=== PATIENT | female | born 1950 ===

== ENCOUNTER 2018-05-02 19:58 | Observation (INO) | payer OTHER ==
--- NOTE | 2018-05-02 20:12 | ED PDOC ---
Arrival/HPI - General Historian: Patient, Family - History of Present Illness Narrative History of Present Illness (Text): 05/02/18 20:41 Patient is a 68 year old female with past medical history of hyperlipidemia, hypertension, s/p pacemaker placement (04/2018) who presents to the emergency department for shortness of breath. Patient's family at the bedside providing some of the history. Patient's daughter states that they were sitting having dinner when the patient started developing acute shortness of breath. They state that she was feeling hot, developed a headache, dizziness and became progressively fatigued. She gave her Tylenol with some improvement of the headache. Daughter states that she recently has a pacemaker placed earlier this month after having a syncopal episode she was found to have pauses. Currently patient is fatigued and was experiencing palpitations prior to arrival. She admits to having a few episodes of diarrhea yesterday. She denies any fevers, chills, nausea/vomiting, chest pain, abdominal pain, recent travel, calf swelling/pain, dysuria. Allergies: NKDA Medications: Rosuvastatin 20mg PO HS Medical History: HLD, Hypertension, Pacemaker placement Surgical History: Hysterectomy Social History: Former smoker, quit 4 years ago; denies alcohol or drug use Time/Duration: Prior to Arrival Symptom Onset: Sudden Symptom Course: Unchanged <Cadence Bennett - Last Filed: 05/03/18 00:18> <Armando Chaidez - Last Filed: 05/03/18 03:06> - General Chief Complaint: Shortness Of Breath Time Seen by Provider: 05/02/18 20:10 Past Medical History - Provider Review Nursing Documentation Reviewed: Yes - Cardiac Hx Cardiac Disorders: Yes <Cadence Bennett - Last Filed: 05/03/18 00:18> Family/Social History - Physician Review Nursing Documentation Reviewed: Yes Family/Social History: CAD/TN Smoking Status: Former Smoker Hx Alcohol Use: No Hx Substance Use: No <Cadence Bennett - Last Filed: 05/03/18 00:18> Allergies/Home Meds <Cadence Bennett - Last Filed: 05/03/18 00:18> <Armando Chaidez - Last Filed: 05/03/18 03:06> Allergies/Adverse Reactions: Allergies No Known Allergies Allergy (Verified 05/02/18 20:09) Home Medications: Home Meds Medication Instructions Recorded Confirmed Rosuvastatin Calcium 25 mg PO DAILY 05/02/18 05/02/18 Review of Systems - Physician Review All systems were reviewed & negative as marked: Yes - Review of Systems Constitutional: Fatigue. absent: Fevers Eyes: absent: Vision Changes ENT: absent: Hearing Changes Respiratory: SOB. absent: Cough, Wheezing Cardiovascular: Palpitations. absent: Chest Pain Gastrointestinal: Diarrhea. absent: Abdominal Pain, Constipation, Nausea, Vomiting Genitourinary Female: absent: Dysuria Musculoskeletal: absent: Back Pain Skin: absent: Rash Neurological: Headache. absent: Dizziness <Cadence Bennett - Last Filed: 05/03/18 00:18> Physical Exam Vital Signs Reviewed: Yes Temperature: Afebrile Blood Pressure: Hypertensive Pulse: Regular Respiratory Rate: Normal Appearance: Positive for: Non-Toxic Pain Distress: Mild Mental Status: Positive for: Alert and Oriented X 3 - Systems Exam Head: Present: Atraumatic, Normocephalic Extroacular Muscles: Present: EOMI Mouth: Present: Moist Mucous Membranes Neck: Present: Normal Range of Motion Respiratory/Chest: Present: Clear to Auscultation. No: Respiratory Distress, Accessory Muscle Use, Wheezes, Rales, Rhonchi Cardiovascular: Present: Regular Rate and Rhythm, Normal S1, S2, Other (+pacemaker) Abdomen: Present: Normal Bowel Sounds. No: Tenderness, Distention Upper Extremity: Present: Normal Inspection Lower Extremity: Present: Normal Inspection, NORMAL PULSES. No: CALF TENDERNESS, Greyson's Sign Skin: Present: Warm, Dry Psychiatric: Present: Alert, Oriented x 3 <Cadence Bennett - Last Filed: 05/03/18 00:18> Vital Signs Temp Pulse Pulse Resp BP Pulse Ox 05/03/18 02:00 76 05/03/18 01:55 76 20 05/03/18 00:40 98.1 F 83 18 112/69 100 05/03/18 00:01 98.1 F 73 18 133/81 99 05/02/18 20:09 97.7 F 94 H 12 139/104 H 95 05/02/18 19:59 18 97 <Armando Chaidez - Last Filed: 05/03/18 03:06> Medical Decision Making ED Course and Treatment: 05/02/18 20:34 Patient is a 68 year old female with past medical history of hyperlipidemia, s/p pacemaker placement (04/2018) who presents to the emergency department for dyspnea, generalized weakness and headache. On exam, patient is hypoxic, lethargic. Plan - CT angio PE protocol - CBC, CMP, D dimer, troponin, Pro-bnp - Arterial blood gas - Supplemental Oxygen 05/02/18 23:02 CT chest report and labs reviewed . We will admit for hypoxia, dyspnea, and leukocytosis. Call placed to Dr Pabon, awaiting call back. 05/03/18 00:18 Discussed the case with Dr Pabon. Will admit the patient to telemetry under her service. - RAD Interpretation Narrative RAD Interpretations (Text): 05/02/18 22:58 CT chest: 1. Pulmonary embolism is not identified. Study is limited secondary to respiratory motion. 2. No infiltrates, pleural effusions, or pneumothoraces. 3. One solitary distal right paratracheal space lymph node measuring 11 mm in diameter short axis. 4. Thoracic aorta of normal course and caliber. Molecular Biology Professor: Radiologist - EKG Interpretation EKG Interpretation (Text): 05/02/18 20:36 EK bpm, NSR, right bundle branch block Interpreted by ED Physician: Yes Type: 12 lead EKG <Cadence Bennett - Last Filed: 05/03/18 00:18> ED Course and Treatment: Seen and examined with resident. 68 y/o F p/w dyspnea. On exam, tachycardic, clear breath sounds. - Lab Interpretations Lab Results: 05/02/18 20:21 05/02/18 20:21 Lab Results 05/02/18 23:11: pCO2 36, pO2 75.0 L, HCO3 22.3, ABG pH 7.40, ABG Total CO2 23.4, ABG O2 Saturation 96.6, ABG O2 Content 16.6, ABG Base Excess -2.1 L, ABG Hemoglobin 12.4, ABG Carboxyhemoglobin 1.1, POC ABG HHb (Measured) 3.3, ABG Methemoglobin 0.9, ABG O2 Capacity 17.2, Hgb O2 Saturation 94.7 L, FiO2 21.0 05/02/18 20:21: D-Dimer, Quantitative 588 H 05/02/18 20:21: Sodium 139, Potassium 3.9, Chloride 107, Carbon Dioxide 23, Anion Gap 13, BUN 11, Creatinine 0.6 L, Est GFR ( Amer) > 60, Est GFR (Non-Af Amer) > 60, Random Glucose 161 H, Calcium 9.2, Total Bilirubin 0.2, AST 27, ALT 37, Alkaline Phosphatase 156 H, Total Creatine Kinase 65, Troponin I < 0.01, NT-Pro-B Natriuret Pep 44.8, Total Protein 7.0, Albumin 3.9, Globulin 3.1, Albumin/Globulin Ratio 1.2 05/02/18 20:21: WBC 15.1 H, RBC 4.78, Hgb 13.5, Hct 40.8, MCV 85.4, MCH 28.2, MCHC 33.1, RDW 14.9 H, Plt Count 304, MPV 10.7, Gran % 69.9 H, Lymph % (Auto) 16.4 L, [place] % (Auto) 6.6 H, Eos % (Auto) 7.0 H, Baso % (Auto) 0.1, Gran # 10.57 H, Lymph # (Auto) 2.5, [place] # (Auto) 1.0 H, Eos # (Auto) 1.1 H, Baso # (Auto) 0.02 - RAD Interpretation Radiology Orders: 05/02/18 22:27 ANGIO CHEST PE PROTOCOL [CT] Stat <Armando Chaidez - Last Filed: 05/03/18 03:06> Disposition/Present on Arrival - Present on Arrival Any Indicators Present on Arrival: No History of DVT/PE: No History of Uncontrolled Diabetes: No Urinary Catheter: No History of Decub. Ulcer: No - Disposition Have Diagnosis and Disposition been Completed?: Yes Disposition Time: 00:18 Patient Plan: Admission <Cadence Bennett - Last Filed: 05/03/18 00:18> <Armando Chaidez - Last Filed: 05/03/18 03:06> - Disposition Diagnosis: Hypoxia, Shortness of breath Disposition: HOSPITALIZED Patient Problems: Current Active Problems Problem Status Onset Hypoxia Acute Shortness of breath Acute Condition: FAIR
[2018-05-02 21:17] LABS: ALB/GLOB RATIO 1.2 (1.1-1.8); ALBUMIN 3.9 g/dL (3.0-4.8); ALT/SGPT 37 U/L (7-56); AST/SGOT 27 U/L (14-36); BLOOD UREA NITROGEN 11 mg/dL (7-21); CALCIUM 9.2 mg/dL (8.4-10.5); GFR NON-AFRICAN AMERICAN > 60
[2018-05-02 21:27] LABS: B-TYPE NATRIURETIC PEPTIDE 44.8 pg/mL (0-450); TROPONIN I < 0.01 ng/mL
[2018-05-02] MEDS ORDERED: Iodixanol 320 MG/ML 100 ML BOTTLE IV ONE (21:33)
[2018-05-02 21:37] LABS: HEMOGLOBIN 13.5 g/dL (12.0-16.0); RBC 4.78 10^6/uL (3.5-6.1); WHITE BLOOD COUNT 15.1 10^3/uL (4.5-11.0)
[2018-05-02 21:38] LABS: BASO # 0.02 K/mm3 (0.0-2.0); BASO % 0.1 % (0.0-3.0); EOS # 1.1 (0.0-0.7); GRAN # 10.57 (1.4-6.5); GRAN % 69.9 % (50.0-68.0); LYMPH # 2.5 (1.2-3.4); LYMPH % 16.4 % (22.0-35.0); MEAN CELL VOLUME 85.4 fl (80.0-105.0); MEAN CORPUSCULAR HEMOGLOBIN 28.2 pg (25.0-35.0); MEAN CORPUSCULAR HGB CONC 33.1 g/dl (31.0-37.0); MEAN PLATELET VOLUME 10.7 fl (7.0-11.0); MONO % 6.6 % (1.0-6.0); RED CELL DISTRIBUTION WIDTH 14.9 % (11.5-14.5)
[2018-05-02 23:13] LABS: ARTERIAL BLOOD GAS HCO3 22.3 mmol/L (21-28); ARTERIAL BLOOD GAS HEMOGLOBIN 12.4 g/dL (11.7-17.4); ARTERIAL BLOOD GAS O2 CAPACITY 17.2 mL/dl (16-24); ARTERIAL BLOOD GAS O2 CONTENT 16.6 ML/dl (15-23); ARTERIAL BLOOD GAS O2 SAT 96.6 % (95-98); ARTERIAL BLOOD GAS PCO2 36 mm/Hg (35-45); ARTERIAL BLOOD GAS TCO2 23.4 mmol.L (22-28)
[2018-05-03 00:59] LABS: URINE BILIRUBIN NEGATIVE (NEGATIVE); URINE BLOOD NEGATIVE (NEGATIVE); URINE GLUCOSE (UA) NEGATIVE (NEGATIVE); URINE LEUKOCYTE ESTERASE SMALL Leu/uL (NEGATIVE); URINE PROTEIN NEGATIVE mg/dL (<30 mg/dL); URINE UROBILINOGEN 0.2 E.U./dL (<1 E.U./dL)
[2018-05-03 01:14] LABS: URINE APPEARANCE SL CLOUDY (CLEAR); URINE COLOR YELLOW (YELLOW)
[2018-05-03 01:15] LABS: URINE BACTERIA FEW (NEG); URINE EPITHELIAL CELLS 0 - 2 /hpf (0-5); URINE RBC 0 - 2 /hpf (0-2)
[2018-05-03 02:33] VITALS: BMI 30.9
[2018-05-03] MEDS ORDERED: Albuterol-Ipratrop 3 mg / 0.5 (3 ml) UD IH PRN (08:22)
[2018-05-03] MEDS ORDERED: Levalbuterol 0.63 MG/3 ML Inhal Soln UD IH PRN (09:57)
[2018-05-03] MEDS ORDERED: ROSUVASTATIN PO SCH (10:00)
[2018-05-03] MEDS: Enoxaparin 40 mg Syringe SC SCH (10:31)
--- NOTE | 2018-05-03 12:08 | CT ---
Date of service: 05/02/2018 PROCEDURE: CT Chest with contrast (Pulmonary Angiogram) HISTORY: dyspnea, r/o PE COMPARISON: None available. TECHNIQUE: Axial computed tomography images were obtained of the chest in the pulmonary arterial phase of enhancement. Coronal and sagittal reformatted images were created and reviewed. Intravenous contrast dose: Radiation dose: Total exam DLP = 533.47 mGy-cm. This CT exam was performed using one or more of the following dose reduction techniques: Automated exposure control, adjustment of the mA and/or kV according to patient size, and/or use of iterative reconstruction technique. FINDINGS: PULMONARY ARTERIES: Visualized pulmonary trunk, right and left main, lobar and proximal subsegmental branches of the pulmonary arteries are opacified with no definitive filling defects seen to suggest acute central pulmonary embolus. Note that the distal branches are poorly seen due to large body habitus, suboptimal opacification and cardiac motion artifact. Pulmonary trunk measures approximately 2.8 cm.. AORTA: No acute findings. No thoracic aortic aneurysm. Ascending thoracic aorta measures approximately 2.9 cm and descending thoracic aorta measures approximately 2.0 cm. No aortic atherosclerotic calcification or mural plaque present. LUNGS: Mild passive/dependent type atelectasis both posterior lower lung jones.. There is also some linear scarring change in the left lower lung field extending to the lateral pleural surface. No focal consolidation. No parenchymal masses or nodules. PLEURAL SPACES: Unremarkable. No effusion or pneumothorax. HEART: Heart size within range of normal.. No significant pericardial effusion. In situ bipolar cardiac pacemaker. LYMPH NODES: Few small mediastinal lymph nodes are present the largest right parasagittal precarinal lymph node measuring approximately 12 mm. There is a left-sided prevascular space lymph node measuring approximately 1 cm. Trachea midline and patent with no large central endoluminal lesions.. There is a small hiatal hernia. BONES, CHEST WALL: Unremarkable. No fracture or destructive lesion OTHER FINDINGS: Unremarkable. IMPRESSION: Limited study as described. No evidence of acute central pulmonary embolus. Few small nonspecific mediastinal and hilar lymph nodes.
--- NOTE | 2018-05-03 17:42 | CARD ---
APPROVED REPORT Date of service: 05/02/2018 EKG Measurement Heart [id number] <Conclusion> Normal sinus rhythm Right bundle branch block Left posterior fascicular block Bifascicular block Possible Inferior infarct, age undetermined Abnormal ECG
--- NOTE | 2018-05-03 18:25 | CON ---
DATE: 05/03/2018 CARDIOLOGY EVALUATION REASON FOR CONSULTATION: Admitted with palpitation, history of recently pacemaker placed. BRIEF CLINICAL HISTORY: This is a 68-year-old -[place] female with a past medical history significant for hypertension, hyperlipidemia, sick sinus syndrome, multiple syncope x3, found to be multiple pause and heart rate slow, status post permanent pacemaker in 04/2018 at [facility]. Yesterday, the patient was visiting her daughter in [place], felt some palpitation, headache, so came to the emergency room. Denies any chest pain. Denies any palpitation, though complains of shortness of breath. PAST MEDICAL HISTORY: Significant for hypertension, hyperlipidemia, sick sinus syndrome, recently placed pacemaker in 04/2018 because of three episodes of syncope and multiple pauses and bradycardia. CURRENT MEDICATIONS: The patient is taking cholesterol medication rosuvastatin, dose not sure, possibly 5 mg daily. PAST SURGICAL HISTORY: Significant for hysterectomy 25 years ago. SOCIAL HISTORY: Former smoker. Quit 4 years ago. Used to smoke a pack, started at the age of 18. Denies any history of alcohol abuse. FAMILY HISTORY: Noncontributory. REVIEW OF SYSTEMS: As per HPI. PHYSICAL EXAMINATION: As follows; VITAL SIGNS: Height of the patient is 5 feet 4 inches, weight of the patient is 180 pounds, body mass index 32 kg/m2. Rest of the vitals; temperature afebrile, heart rate 75, blood pressure 115/65. HEENT: PERRLA. Extraocular muscles intact. NECK: Supple. No carotid bruit or thyromegaly. CHEST: Clear to auscultation. HEART: S1, S2 regular. ABDOMEN: Soft. EXTREMITIES: Clubbing and cyanosis negative. EKG shows normal sinus, heart rate of 100, right bundle-branch block, left anterior hemiblock. LABORATORY DATA: Rest of the blood workup as follows; WBC 15.1, hemoglobin 13.5, hematocrit 40.8, platelet count 304. Chemistry shows sodium 139, potassium 3.9, chloride of 107, carbon dioxide 23, anion gap of 13, BUN 11, creatinine 0.6. Troponin 0.01, negative. Telemetry shows normal sinus. IMPRESSION: A 68-year old female with a past medical history significant for hyperlipidemia, hypertension borderline, history of recent three episodes of syncope, sick sinus syndrome, multiple pauses, status post pacemaker in [facility] on 04/2018, was visiting to the daughter, found the palpitation and headache, so brought here. Denies any chest pain. So far, troponin remains negative. RECOMMENDATIONS: Get echo to assess LV function. Lipid profile, TSH, hemoglobin A1c. Continue DVT prophylaxis. Monitor the blood pressure. Start low dose of beta-marce as tolerated. Further recommendations as per hospital course. We will follow with you. We will get chest x-ray if it is not done, portable because did not show any record of the chest x-ray being done. See the lead position of pacemaker. We will follow with you. Thank you Dr. Gavin for providing us the opportunity in taking care of the patient, Naomi Vee. Alberto Simmons MD
[2018-05-03] MEDS ORDERED: ROSUVASTATIN 5 MG PO SCH (19:44)
--- NOTE | 2018-05-03 21:57 | CON ---
DATE OF CONSULTATION: 05/03/2018 REFERRING PHYSICIAN: Jessica Gavin MD REASON FOR CONSULTATION: Cough, shortness of breath, may have sleep apnea syndrome, cardiac arrhythmia, history of pacemaker. HISTORY OF PRESENT ILLNESS: This is a 68-year-old female with past medical history significant for hypertension, hyperlipidemia, history of cardiac arrhythmia requiring pacemaker. She is a resident of [place], visiting her daughter here in [place]. While sitting up, felt some headache, shortness of breath and brought into emergency room, was admitted for further workup. Presently lying in the bed, seen by Cardiology, admits to loud snoring, daytime sleepy and tired. No chest pain. No nausea, no vomiting, no diarrhea, leg pain or leg swelling. PAST MEDICAL HISTORY: As per history of present illness. FAMILY HISTORY: No significant cardiopulmonary disease reported. SOCIAL HISTORY: Stopped smoking few years ago. Denied any alcohol use. MEDICATIONS: She is on Ecotrin 81 mg daily, metoprolol tartrate 25 mg twice a day, Lovenox 40 mg daily, Xopenex inhaled every 6 hours p.r.n. ALLERGIES: NONE KNOWN. REVIEW OF SYSTEMS: On and off headache, no rhinitis. Mild cough and shortness of breath. Admits to loud snoring. Short of breath with exertion. No chest pain. No nausea, vomiting, diarrhea, leg pain or leg swelling. PHYSICAL EXAMINATION: GENERAL: No acute distress. VITAL SIGNS: Temperature is 98, heart rate is 64, respiratory rate is 18, blood pressure 127/88, pulse ox 100% on nasal cannula. HEENT: Moist mucous membranes. Crowded airway. Mallampati score is 4. NECK: Supple. No JVD. LUNGS: Fair airflow with few rhonchi. HEART: S1 and S2. ABDOMEN: Soft, nontender, no organomegaly. EXTREMITIES: No edema. NEUROLOGIC: Awake, alert, and follows simple commands. LABORATORY DATA: Hemoglobin 13.5, hematocrit 40.5, WBC 15.1, platelet count is 304,000. D-dimer was 588. ABG showed pH 7.40, pCO2 of 36, O2 of 75 that is on nasal cannula. Sodium 139, potassium 3.9, chloride 107, bicarbonate 23, BUN 11, creatinine 0.6, calcium 9.2, total bili 0.2, AST 27, ALT 37, alk phos is 156. Troponin less than 0.01. Albumin is 3.9. Urinalysis unremarkable. CAT scan of the chest done in ER, which shows limited study. No evidence of acute incident of pulmonary embolism. Few small nonspecific mediastinal and hilar nodes. IMPRESSION AND PLAN: May have chronic obstructive lung disease, hilar and mediastinal node, may have sleep apnea syndrome, cardiac arrhythmia requiring pacemaker, hyperlipidemia, hypertension. Case discussed with the patient's daughter at bedside. All their questions answered. Seen by certification officer. From a pulmonary point of view, definitely needs a sleep study upon discharge as outpatient. Should also get PFTs. She needs followup CAT scan and low-dose x-rays for cancer screening. Recently stopped smoking. Has some nonspecific mediastinal and hilar adenopathy. Family and the patient aware of followup. May add gastric prophylaxis. Continue DVT prophylaxis. Thank you and we will follow with you. Alberto Avila MD
--- NOTE | 2018-05-03 23:24 | HP ---
DATE OF EXAM: 05/03/2018 The patient is 68 years old female. The patient was seen and examined at the bedside on 05/03/2018 CHIEF COMPLAINT: Shortness of breath and dyspnea. HISTORY OF PRESENT ILLNESS: Ms. Nanda Salgado is a 68-year-old Citizen Of [place] female with past medical history of hypercholesterolemia, hypertension, pacemaker, came to the emergency department with shortness of breath and dyspnea. The patient's family at the bedside provided information. The patient daughter states that, they were sitting having dinner when the patient started developing acute shortness of breath. They states that she was feeling hot, developed headache, dizziness, became progressively fatigued. They gave her Tylenol with some improvement of the headache. The daughter states that she recently had the pacemaker placed earlier this month. After having syncopal episode, she was found to have pauses. Currently, the patient is fatigued, experiencing palpitation prior to arrival. Having episode of diarrhea yesterday. No fever. No chills. No recent travel. No cough, tenderness, or dysuria. I saw patient in her room; at that moment, she was feeling comfortable. PAST MEDICAL HISTORY: Hypercholesterolemia, hypertension, pacemaker placement, history of syncopal attack. ALLERGIES: THE PATIENT IS NOT ALLERGIC WITH ANY MEDICATIONS. HOME MEDICATION: Crestor. HABITS: Former smoker, quit 4 years ago. No alcohol. No substance abuse. REVIEW OF SYSTEMS: The patient was seen and examined at the bedside in the telemetry, looking comfortable, feeling little bit fatigued, but no fever. No vision changes. No hearing changes. Having shortness of breath, especially on exertion, but no coughing or wheezing. Having palpitation, but no chest pain at this moment. Having history of diarrhea, but no abdominal pain, constipation, nausea or vomiting at this moment. No dysuria. No back pain. No rashes. No dizziness. PHYSICAL EXAMINATION: VITAL SIGNS: Temperature 98.1, pulse 76, respiratory rate 20, blood pressure 133/81, pulse oximetry 99%. HEENT: Head, normocephalic and atraumatic. Eyes PERRLA. Extraocular movements intact. Conjunctivae clear. Nose patent. Mucous membranes moist. NECK: Supple. No carotid bruit. No JVD or thyromegaly. CHEST: Bilaterally symmetrical. HEART: S1, S2 positive. LUNGS: Clear to auscultation. ABDOMEN: Soft. Bowel sounds present. No organomegaly. EXTREMITIES: No edema, no cyanosis. NEUROLOGIC: The patient awake and alert, moving all four extremities. No focal deficit. LABORATORY DATA: White blood cells 15.1, hemoglobin 13.5, hematocrit 40.8, and platelets 304. Sodium 139, potassium 3.9, BUN 11, creatinine 0.6, glucose 161. ASSESSMENT AND PLAN: Ms. Nanda Salgado is a 68-year-old lady with a leukocytosis, and hyperglycemia, came with hypoxia, shortness of breath, history of hypercholesterolemia, hypertension, pacemaker placement. After syncopal attack, according to family has history of pauses. Getting cholesterol medication at home. We admitted the patient in the telemetry, did CAT scan of the chest, no evidence of acute central pulmonary embolism. Few small nonspecific mediastinal and hilar lymph nodes present. Echocardiography done, results are pending. Would consult with Dr. Reyes, manager of security and Dr. Avila, licensing director. Started the patient on aspirin, Crestor, metoprolol by Dr. Simmons. Lovenox started, Xopenex started. We will monitor the patient in telemetry. Repeat the labs. Gastrointestinal and deep venous thrombosis prophylaxis. We will follow up. Jessica Gavin MD
[2018-05-04 06:07] VITALS: O2SAT 98
--- NOTE | 2018-05-04 07:40 | CP.PCM.PN ---
Subjective - Date & Time of Evaluation Date of Evaluation: 05/04/18 Time of Evaluation: 06:20 - Subjective Subjective: Awake,ambulating to bathroom,denies shortness of breath Reason for consultation and follow up: Cardiac evaluation of shortness of breath and palpitation ,history of PPM for sick sinus syndrome, hypertension,hyperlipidemia Seen and examined by me and Dr. Simmons Objective - Vital Signs/Intake and Output Vital Signs (last 24 hours): Temp Pulse Resp BP Pulse Ox 97.7 F 74 20 130/86 98 05/04/18 06:00 05/04/18 06:00 05/04/18 06:00 05/04/18 06:00 05/04/18 06:00 Intake and Output: 05/04/18 05/04/18 06:59 18:59 Intake Total 360 Balance 360 - Medications Medications: Current Medications Aspirin (Ecotrin) 81 mg PO DAILY [facility] Last Admin: 05/03/18 10:30 Dose: 81 mg Enoxaparin Sodium (Lovenox) 40 mg SC DAILY [facility]; Protocol Last Admin: 05/03/18 10:31 Dose: 40 mg Famotidine (Pepcid) 40 mg PO [facility] Last Admin: 05/03/18 21:30 Dose: 40 mg Home Med (Home Med) 0 unit PO DAILY [facility] Levalbuterol HCl (Xopenex) 0.63 mg IH [id number] PRN PRN Reason: Shortness of Breath Metoprolol Tartrate (Lopressor) 25 mg PO BID [facility] Last Admin: 05/03/18 17:36 Dose: 25 mg - Labs Labs: 05/02/18 20:21 05/02/18 20:21 - Constitutional Appears: Non-toxic, No Acute Distress - Head Exam Head Exam: NORMAL INSPECTION, NORMOCEPHALIC - Eye Exam Eye Exam: Normal appearance Pupil Exam: NORMAL ACCOMODATION - ENT Exam ENT Exam: Mucous Membranes Moist, Normal Exam - Neck Exam Neck Exam: Full ROM - Respiratory Exam Respiratory Exam: Decreased Breath Sounds, NORMAL BREATHING PATTERN - Cardiovascular Exam Cardiovascular Exam: Bradycardia, +S1, +S2 Additional comments: No JVD PPM - GI/Abdominal Exam GI & Abdominal Exam: Soft, Normal Bowel Sounds - Extremities Exam Extremities Exam: Full ROM, Normal Capillary Refill - Neurological Exam Neurological Exam: Alert, Awake, Oriented x3 - Psychiatric Exam Psychiatric exam: Normal Affect, Normal Mood - Skin Skin Exam: Dry, Normal Color, Warm Assessment and Plan - Assessment and Plan (Free Text) Assessment: A 68 year old female who came in to the ER due to shortness of breath and palpitations. History of hypertension, hyperlipidemia, sick sinus syndrome requiring PPM (04/2018) in [place], former smoker quit 4 years ago. She was visiting her daughter in [place] when symptoms happened. Troponin normal. Echo done to evaluate LV function. CT of chest no evidence of PE. EKG, normal sinus rhythm. Plan: No distress, ambulating to bathroom Denies chest pain or shortness of breath Echo was done will follow up results Heart rate controlled/PPM Blood pressure controlled On ASA 81 mg daily, Lovenox 40 mg daily,Lopressor 25 mg BID Continue current medications Continue current treatment Chest X ray to check PPM Lead placement Chart reviewed Will follow up Plan and treatment discussed with Dr. Simmons
[2018-05-04 07:49] LABS: ALB/GLOB RATIO 1.1 (1.1-1.8); ALBUMIN 3.8 g/dL (3.0-4.8); ALT/SGPT 32 U/L (7-56); AST/SGOT 26 U/L (14-36); BLOOD UREA NITROGEN 12 mg/dL (7-21); CALCIUM 8.9 mg/dL (8.4-10.5); GFR NON-AFRICAN AMERICAN > 60; HDL CHOLESTEROL 37 mg/dL (29-60)
[2018-05-04 08:00] LABS: LDL CHOLESTEROL 67 mg/dL (0-129)
[2018-05-04 08:10] LABS: BASO # 0.03 K/mm3 (0.0-2.0); BASO % 0.2 % (0.0-3.0); EOS # 0.7 (0.0-0.7); EOS % 5.5 % (1.5-5.0); GRAN # 7.37 (1.4-6.5); GRAN % 58.6 % (50.0-68.0); HEMOGLOBIN 13.6 g/dL (12.0-16.0); LYMPH # 3.7 (1.2-3.4); MEAN CELL VOLUME 85.3 fl (80.0-105.0); MEAN CORPUSCULAR HEMOGLOBIN 27.7 pg (25.0-35.0); MEAN CORPUSCULAR HGB CONC 32.5 g/dl (31.0-37.0); MEAN PLATELET VOLUME 9.6 fl (7.0-11.0); MONO # 0.8 (0.1-0.6); MONO % 6.7 % (1.0-6.0); RBC 4.91 10^6/uL (3.5-6.1); RED CELL DISTRIBUTION WIDTH 14.3 % (11.5-14.5); WHITE BLOOD COUNT 12.6 10^3/uL (4.5-11.0)
[2018-05-04 09:18] LABS: IRON 69 ug/dL (45-180)
[2018-05-04 09:27] LABS: % IRON SATURATION 20 % (20-55); TOTAL IRON BINDING CAPACITY 336 ug/dL (265-497)
--- NOTE | 2018-05-04 10:13 | RAD ---
Date of service: 05/04/2018 HISTORY: check PPM lead placement COMPARISON: Comparison made with prior study 05/04/2018 TECHNIQUE: Chest PA and lateral FINDINGS: LUNGS: Mild bibasilar atelectasis. PLEURA: No significant pleural effusion identified. No pneumothorax apparent. CARDIOVASCULAR: No discernible aortic atherosclerotic calcification present. Heart size within range of normal.. Bipolar pacemaker/defibrillator no pulmonary vascular congestion. OSSEOUS STRUCTURES: No significant abnormalities. VISUALIZED UPPER ABDOMEN: Normal. OTHER FINDINGS: None. IMPRESSION: Mild bibasilar atelectasis.
[2018-05-04] MEDS: Enoxaparin 40 mg Syringe SC SCH (10:32)
[2018-05-04 10:36] VITALS: PULSE 68
--- NOTE | 2018-05-04 10:52 | CARD ---
APPROVED REPORT Date of service: 05/03/2018 EXAM: Two-dimensional and M-mode echocardiogram with Doppler and color Doppler. INDICATION NEAR SYNCOPE 2D DIMENSIONS IVSd1.1 (0.7-1.1cm)LVDd4.8 (3.9-5.9cm) PWd1.3 (0.7-1.1cm)LVDs3.2 (2.5-4.0cm) FS (%) 33.4 %LVEF (%)61.9 (>50%) M-Mode DIMENSIONS Left Atrium (MM)3.90 (2.5-4.0cm)Aortic Root2.90 (2.2-3.7cm) Aortic Cusp Exc.1.90 (1.5-2.0cm) Aortic Valve AoV Peak Rztdurrb935.0cm/Noel Peak GR.8mmHg Mitral Valve MV E Ekonahps00.0cm/sMV A Cssrefcc00.3cm/sE/A ratio0.8 TDI Lateral E' Peak V11.00cm/sMedial E' Peak V7.12cm/sE/Lateral E'6.7 E/Medial E'10.4 Tricuspid Valve TR Peak [id number]/sRAP [id number] Peak Gr.29mmHg [id number] LEFT VENTRICLE The left ventricle is normal size. There is borderline to mild concentric left ventricular hypertrophy. The left ventricular function is normal.EF-55-60% Apical motion consistent with pacemaker activation. Transmitral Doppler flow pattern is Grade III-reversible restrictive diastolic dysfunction. No left ventricle thrombus noted on this study. There is no ventricular septal defect visualized. There is no left ventricular aneurysm. There is no mass noted in the left ventricle. RIGHT VENTRICLE The right ventricle is normal size. There is normal right ventricular wall thickness. The right ventricular systolic function is normal. There is a pacemaker lead in the right ventricle. ATRIA The left atrium size is normal. The right atrium size is normal. There is a catheter/pacemaker lead seen in the right atrium. The interatrial septum is intact with no evidence for an atrial septal defect. AORTIC VALVE The aortic valve is thickened but opens well. No aortic regurgitation is present. There is no aortic valvular stenosis. There is no aortic valvular vegetation. MITRAL VALVE The mitral valve is thickened but opens well. Mitral regurgitation is trace to mild. There is no mitral valve stenosis. There is no evidence of mitral valve prolapse. TRICUSPID VALVE The tricuspid valve leaflets are thickened , but open well. There is mild to moderate tricuspid regurgitation.RVSP-39 mmof Hg. There is no tricuspid valve stenosis. There is no tricuspid valve prolapse or vegetation. PULMONIC VALVE The pulmonary valve is normal in structure. There is no pulmonic valvular regurgitation. There is no pulmonic valvular stenosis. GREAT VESSELS The aortic root is normal in size. The ascending aorta is normal in size. The pulmonary artery is normal. The IVC is normal in size and collapses >50% with inspiration. PERICARDIAL EFFUSION There is no pleural effusion. There is no pericardial effusion. <Conclusion> Normal chamber Size. EF-55-60% PPM lead noted in RA/RV. Mitral regurgitation is trace to mild. There is mild to moderate tricuspid regurgitation.RVSP-39 mmof Hg. There is no pericardial effusion. The IVC is normal in size and collapses >50% with inspiration.
--- NOTE | 2018-05-04 11:14 | PN ---
DATE: 05/04/2018 REASON FOR CONSULTATION AND FOLLOWUP: Cardiac evaluation, admitted with shortness of breath, palpitation, status post pacemaker three weeks ago, history of hypertension, hyperlipidemia. SUBJECTIVE: The patient feels a lot better. No history of chest pain, shortness of breath, or any palpitation. LABORATORY DATA: Blood workup; WBC 12.6, hemoglobin 13.6, hematocrit 41.9, platelet count 366. Chemistry shows sodium 140, potassium 4.2, chloride 106, carbon dioxide 26, anion gap of 12, BUN 12, creatinine 0.7. TSH 9.61. Cholesterol 120, LDL 67, HDL 37. This note is in addition to dictated by the nurse practitioner, Sonia Barnes. ASSESSMENT AND PLAN: A 68-year-old lady with a past medical history of hypertension, hyperlipidemia, admitted with a complaint of palpitation, generalized weakness, and shortness of breath. Echo pending. We will follow. No evidence of arrhythmia noted in telemetry. Started on beta-marce. The patient has a pacemaker. Laboratory shows elevated TSH. We will start a low dose of Synthroid and I will review echo. Continue deep venous thrombosis prophylaxis. If echo remains stable, we will discontinue telemetry. nebulizer discontinued and started on Xopenex as needed. Upon discharge, the patient will be followed up at [facility]. Discussed with the daughter. Thank you Dr. Gavin for providing us the opportunity in taking care of the patient, Nanda Salgado. Alberto Simmons MD
[2018-05-04 12:45] VITALS: BP 127/76; RESP 18; TEMP 98.6
[2018-05-04 12:46] LABS: FOLATE 8.5 ng/mL
--- NOTE | 2018-05-04 16:26 | PN ---
DATE: 05/04/2018 PULMONARY PROGRESS NOTE REFERRING PHYSICIAN: Jessica Gavin MD SUBJECTIVE: She is out of bed to chair, feels better. No headache, no rhinitis. No nausea, vomiting, or diarrhea. No leg pain or leg swelling. OBJECTIVE: GENERAL: In no acute distress. VITAL SIGNS: Temperature is 98, heart rate 68, respiratory rate is 18, blood pressure 127/76, pulse ox 98% on 2 liters nasal cannula. HEENT: Moist mucous membranes. Crowded airway. Mallampati score is 4. NECK: Supple. No JVD. LUNGS: Have fair airflow with rhonchi. HEART: S1, S2. . ABDOMEN: Soft, nontender. No organomegaly. EXTREMITIES: No edema. NEUROLOGIC: Awake, alert. Follows simple commands. MEDICATIONS: Ecotrin 81 mg daily, metoprolol tartrate 25 mg twice a day, Lovenox 40 mg subcutaneously daily, Pepcid 40 mg at bedtime, Synthroid 25 mcg daily, Xopenex inhaled every six hours as needed. LABORATORY DATA: Shows hemoglobin 13.6, hematocrit 41.9, WBC 12.6, platelet count is 366. Sodium 140, potassium 4.2, chloride 106, bicarbonate 26, BUN 12, creatinine 0.7, glucose is 123. Hemoglobin A1c 7.5. Calcium is 8.9, phosphorus 3.5, magnesium 2.4. AST 26, ALT 32, alkaline phosphatase is 128, albumin is 3.8, globulin 3.4. Cholesterol is 120. Vitamin B12 is 477. Folate is 8.5. TSH 9.61. DIAGNOSTIC DATA: Chest x-ray done today shows mild basilar atelectasis, otherwise unremarkable. IMPRESSION AND PLAN: Chronic obstructive lung disease, hilar and mediastinal small lymphadenopathy, may have sleep apnea syndrome, cardiac arrhythmia requiring pacemaker, hyperlipidemia, hypertension, had D-dimer positive, probably secondary to recent surgery for pacemaker. Spoke to granddaughter at bedside. All the questions answered. Once Cardiology clears, as an outpatient, should have PFT and attended sleep study. Fall precaution. Followup CAT scan as an outpatient for annual surveillance for cancer screening. Thank you and we will follow with you. Alberto Avila MD
[2018-05-05] MEDS ORDERED: Levothyroxine 25 MCG TAB PO SCH (06:00)
--- NOTE | 2018-05-05 08:42 | DS ---
The patient is a 68-year-old female. The patient was seen and examined at the bedside on 05/04/2018. CHIEF COMPLAINT: Shortness of breath. HISTORY OF PRESENT ILLNESS: Ms. Nanda Salgado is 68-year-old lady with past medica history of hypercholesterolemia, hypertension, status post pacemaker, came to the Emergency Department with shortness of breath. The patient's daughter states that they were sitting, having dinner when the patient started developing acute shortness of breath. The patient states that she was feeling hot, developed headache and dizziness, became progressively fatigued. Daughter gave her Tylenol with some improvement of the headache. Daughter states that she recently has pacemaker placement earlier this month. After that having syncopal episodes and she was found to have pauses. We admitted the patient. CAT scan of the chest done. Chest x-ray is done. Seen by Dr. Avila, wood room hand, Dr. Simmons, cloth printing back tender. The patient was kept under observation. Stone Crusher Operator clears the patient. Discontinue the telemetry. Discharged the patient to home with family. Two daughters and one granddaughter was sitting on the bed. Length of time discussion done. All questions answered. CAT scan of the chest reviewed. Continue home medication. Follow up with cloth printing back tender and primary care physician. PAST MEDICAL HISTORY: Hypercholesterolemia, hypertension, pacemaker and history of syncopal attack. ALLERGIES: THE PATIENT IS NOT ALLERGIC WITH ANY MEDICATIONS. HOME MEDICATION: Crestor. HABITS: Former smoker. Quit 4 years ago. No alcohol. No substance abuse. REVIEW OF SYSTEMS: The patient was seen and examined at the bedside. Two daughters and one granddaughter was sitting on the bedside also. All questions answered. The patient is looking comfortable. No headache. No dizziness. No chest pain. No palpitations at this moment. Sitting in the chair. Happy to go home. PHYSICAL EXAMINATION: VITAL SIGNS: Temperature 98, heart rate 68, respiratory rate 18, blood pressure 127/76, and pulse oximetry 98% on 2 liters nasal cannula. HEENT: Head; normocephalic and atraumatic. Eyes; PERRLA. Extraocular movements intact. Conjunctivae clear. Nose patent. Mucous membranes moist. NECK: Supple. No carotid bruit. No JVD or thyromegaly. CHEST: Bilaterally symmetrical. HEART: S1, S2 positive. LUNGS: Clear to auscultation. ABDOMEN: Soft. Bowel sounds present. No organomegaly. EXTREMITIES: No edema, no cyanosis. NEUROLOGIC: The patient is awake and alert. Moving all four extremities. No focal deficit. MEDICATIONS: Ecotrin, metoprolol, Lovenox, Pepcid, Synthroid, and Xopenex. LABORATORY DATA: Hemoglobin 13.6. Jessica Gavin MD MTDD
== END 2018-05-04 16:08 | disposition home or self-care (01) ==
LOC: ED 19:58 → ERH 23:45 → 2RNO 05-03 01:11
PROVIDERS: ADMIT Internal Medicine; ATTEND Internal Medicine
DX: R55 Syncope and collapse (principal); R06.02 Shortness of breath; R09.02 Hypoxemia; R00.2 Palpitations; R53.1 Weakness; I10 Essential (primary) hypertension; E03.9 Hypothyroidism, unspecified; E78.00 Pure hypercholesterolemia, unspecified; G47.30 Sleep apnea, unspecified; E78.5 Hyperlipidemia, unspecified; J44.9 Chronic obstructive pulmonary disease, unspecified; I49.5 Sick sinus syndrome; Z95.0 Presence of cardiac pacemaker; Z87.891 Personal history of nicotine dependence
CPT/HCPCS: 36415; 71046; 71275; 80053; 80061; 81001; 82550; 82607; 82746; 82803; 83036; 83540; 83550; 83735; 83880; 84100; 84443; 84484; 85025; 85378; 93005; 93306; 99285; G0378; J1650; Q9967